=== PATIENT | male | born 1945 | race Caucasian/White ===

== ENCOUNTER 2018-10-12 09:14 | Outpatient (CLI) | payer MEDICARE ==
--- NOTE | 2018-10-12 10:26 | RAD ---
EXAM: XR Barium Swallow Esophagus PROVIDED CLINICAL HISTORY: Dysphagia. Pain in left side of neck upon swallowing. COMPARISON: None FINDINGS: [employer] Support [employer]ist chest x-ray demonstrates magnification of the cardiac silhouette. Pulmonary vasculature is with in normal limits. Minimal atelectasis versus scarring is seen at each lung base. The lungs are otherwise clear. Mild degenerative changes are seen in the spine. Esophagram: Double contrast esophagram was performed. There is mild decrease in esophageal peristalsis, but no te rtiary contractions were noted. There is no focal narrowing in the esophagus, and no mucosal irregularity is appreciated. There is a small sliding-type hiatal hernia present. A 12.5 mm barium ta blet was administered which traversed the GE junction freely and without holdup. No gastroesophageal reflux was demonstrated during this exam. IMPRESSION: 1. Small sliding-type hiatal hernia. 2. Mild decrease in primary esophageal peristalsis. 3. Normal appearance of the esophagus without evidence of a mucosal irregularity or focal narrowing.
== END 2018-10-12 09:15 | disposition home or self-care (01) ==
LOC: RAD 09:14
PROVIDERS: ATTEND Physician Assistant Medical
DX: R13.10 Dysphagia, unspecified (principal); K44.9 Diaphragmatic hernia without obstruction or gangrene
CPT/HCPCS: 74220

== ENCOUNTER 2019-11-23 08:38 | Outpatient (CLI) | payer MEDICARE ==
--- NOTE | 2019-11-23 09:56 | MRI ---
MRI LUMBAR SPINE NONCONTRAST: HISTORY: Lumbar radicular pain. Chronic low back pain, worsening over the last 6 months. Left leg pain. COMPARISON: None. FINDINGS: Slightly heterogeneous marrow signal intensity suggesting senescent change. Lumbar spine vertebral cecelia dy heights are maintained. No fracture. There are type II Modic changes at the L1-L2 level. No significant STIR hyperintensity to suggest vertebral body edema or ligamentous injury. Appropriate signal intensity of the visualized solid organs and paraspinal muscles. Conus medullaris terminates at the mid. Spondylolisthesis: T12-L1: 1 mm of retrolisthesis. L1-L2: 3 mm of retrolisthesis. L2-L3: 2.8 mm of retrolisthesis. L4-L5: 3.6 mm of anterolisthesis. T12-L1:Desiccation with moderate loss of disc space height. Minimal left and right paracentral disc b ulges. No significant central canal stenosis or significant neural foraminal narrowing. L1-L2:Desiccation with moderate loss of disc space height. Broad-based disc bulge, ligament flavum th ickening and facet hypertrophy result in mild central canal stenosis. Mild to moderate right and moderate left neural foraminal narrowing. L2-L3:Desiccation with moderate loss of disc space height. Broad-based disc bulge, ligament flavum th ickening and facet hypertrophy result in mild to moderate central canal stenosis. Moderate bilateral neural foraminal narrowing. L3-L4:Desiccation with mild loss of disc space height. Broad-based disc bulge, minimal ligament flavu m thickening and facet hypertrophy result in mild central canal stenosis. Mild right foraminal narrowing. Left neural foramen is patent. L4-L5:Desiccation with mild loss of disc space height. Broad-based disc bulge, ligament flavum thicke morenita and facet hypertrophy result in mild central canal stenosis. Narrowing of bilateral subarticular zones due to disc material and posterior element hypertrophy. Partial obscuration of [place]ota ateral traversing L5 nerve roots. Mild to moderate bilateral neural foraminal narrowing. L5-S1:Desiccation with mild loss of disc space height. Central disc herniation abuts the thecal sac. No significant central canal stenosis. Neural foramina are patent. Left greater than right facet hypertrophy. IMPRESSION: Degenerative changes lumbar spine as detailed above. Transcribed Date/Time: 11/23/2019 10:18 AM
--- NOTE | 2019-11-23 11:12 | RAD ---
LUMBAR SPINE RADIOGRAPHS 3 VIEWS: DATE: 08/23/2019. PROVIDED CLINICAL HISTORY: Lumbar radicular pain. FINDINGS: Comparison 05/04/2019. Neutral lateral, flexion lateral, and extension lateral radiographs of the lumbar spine are submitted . Sagittal lumbar alignment appears unchanged. There is no evidence for abnormal translational brandon on with flexion and extension. Multilevel lumbar degenerative changes appear similar to prior. Vert ebral body heights are maintained. Vascular calcification is again noted. IMPRESSION: As above. POS: NIMA
== END 2019-11-23 08:39 | disposition home or self-care (01) ==
LOC: SCSMRI 08:38
PROVIDERS: ATTEND Nurse Practitioner Family
DX: M47.26 Other spondylosis with radiculopathy, lumbar region (principal); I70.90 Unspecified atherosclerosis
CPT/HCPCS: 72100; 72148

== ENCOUNTER 2024-03-20 07:30 | Day surgery (SDC) | payer MEDICARE ==
[2024-03-19 13:21] VITALS: BMI 24.7
[~2024-03-20 07:30] MED LIST: EPINEPHrine 0.3 MG in Ophthalmic Irrigation Solution 500 ML IRR SCH
[2024-03-20] MEDS ORDERED: CEFAZOLIN 1 GM VIAL ONE (08:27)
[2024-03-20] MEDS ORDERED: PROPOFOL 200 MG/20 ML VIAL ONE (08:27)
[2024-03-20] MEDS ORDERED: Lidocaine 1% PF 5 ML VIAL ONE (08:27)
[2024-03-20] MEDS ORDERED: Indocyanine Green 25 MG/10 ML VIAL ONE (08:27)
[2024-03-20] MEDS ORDERED: Lidocaine 4% PF 5 ML AMP ONE (08:27)
[2024-03-20] MEDS ORDERED: Maxitrol 0.1% Opth Oint 3.5 GM TUBE ONE (08:27)
[2024-03-20] MEDS ORDERED: Triamcinolone 40 MG/ML VIAL ONE (08:27)
[2024-03-20] MEDS ORDERED: Bupivacaine 0.75% 10 ML VIAL ONE (08:27)
== END 2024-03-20 09:35 | disposition home or self-care (01) ==
LOC: SDC 07:30
PROVIDERS: ATTEND Ophthalmology Retina Specialist
PROC: 08T53ZZ Resection of Left Vitreous, Percutaneous Approach (ICD-10-PCS; principal; 2024-03-20)
DX: H35.342 Macular cyst, hole, or pseudohole, left eye (principal); Z88.2 Allergy status to sulfonamides; Z88.8 Allergy status to other drugs, medicaments and biological substances
CPT/HCPCS: 67042; J0171; J0690; J2704; J3301; J3490; 67025